=== PATIENT | female | born 1980 | race Caucasian/White ===

== ENCOUNTER 2021-03-12 19:08 | Emergency (ER) | payer OTHER, MEDICAID, SELFPAY ==
[2021-03-12 19:11] VITALS: BP 135/63; PULSE 123; RESP 20; TEMP 38.9; O2SAT 96
[2021-03-12] MEDS: SODIUM CHLORIDE 0.9% 1,000 ML 1000 ML IV ×2 (19:41→20:39)
[2021-03-12] MEDS: ONDANSETRON 4 MG/2 ML INJ IV (19:43)
[2021-03-12 19:59] VITALS: TEMP 38.8
[2021-03-12] MEDS: ACETAMINOPHEN 325 MG TABLET 650 MG PO (19:59)
[2021-03-12 20:25] LABS: Adenovirus Not Detected (Not Detect); Coronavirus 229E Not Detected (Not Detect); Coronavirus HKU1 Not Detected (Not Detect); Coronavirus NL 63 Not Detected (Not Detect); Coronavirus OC43 Not Detected (Not Detect); Human Metapneumovirus Not Detected (Not Detect); SARS- CoV-2 Not Detected (Not Detecte)
[2021-03-12 20:26] LABS: B. parapertussis Not Detected (Not Detecte); Bordetella pertussis Not Detected (Not Detecte); Chlamydophila pneumoniae Not Detected (Not Detect); Human Rhinovirus/Enterovirus Not Detected (Not Detect); Influenza A Not Detected (Not Detect); Influenza B Not Detected (Not Detect); Mycoplasma pneumoniae Not Detected (Not Detect); Parainfluenza Virus 1 Not Detected (Not Detect); Parainfluenza Virus 2 Not Detected (Not Detect); Parainfluenza Virus 3 Not Detected (Not Detect); Parainfluenza Virus 4 Not Detected (Not Detect); Respiratory Syncytial Virus Not Detected (Not Detect)
[2021-03-12 20:37] VITALS: TEMP 39.2
--- NOTE | 2021-03-12 20:59 | ED.GENADULT ---
HPI - General Adult General Chief complaint: Fever Stated complaint: HAVE FLU FEVER 104.4 Time Seen by Provider: 03/12/21 19:41 Source: patient Mode of arrival: Ambulatory History of Present Illness HPI narrative: Patient is a 40-year-old female who for the past week has had fevers and feeling fairly poorly. She thought that she potentially had the flu. Earlier today started to have abdominal discomfort diarrhea. Has been taking Tylenol and ibuprofen for the fevers. Denies chest pain. Denies cough. Denies sore throat. Denies rashes. Has had nausea during this time as well. No recent travel. No recent antibiotics. No recent camping. No sick contacts that she knows of. Related Data Previous Rx's Medication Instructions Recorded ondansetron 4 mg disintegrating 4 mg PO Q6H PRN #14 tab 03/13/21 tablet Allergies Allergy/AdvReac Type Severity Reaction Status Date / Time PCN (PENICILLIN) Allergy Intermediate Uncoded 06/25/17 11:55 SULFA Allergy Intermediate Uncoded 06/25/17 11:55 Review of Systems Review of Systems ROS Unobtainable: All systems reviewed & are unremarkable except as noted in HPI and below Constitutional Constitutional: Reports as per HPI, Reports system reviewed and no additional complaints, except as documented and Reports fever(s) ENT Ears, Nose, Mouth, and Throat: Reports system reviewed and no additional complaints, except as documented and Reports as per HPI Cardiovascular Cardiovascular: Reports system reviewed and no additional complaints, except as documented Respiratory Respiratory: Reports as per HPI and Reports system reviewed and no additional complaints, except as documented Gastrointestinal Gastrointestinal: Reports as per HPI and Reports system reviewed and no additional complaints, except as documented Genitourinary Genitourinary: Reports system reviewed and no additional complaints, except as documented and Reports as per HPI Musculoskeletal Musculoskeletal: Reports system reviewed and no additional complaints, except as documented Integumentary/Breasts Skin/Breast: Reports system reviewed and no additional complaints, except as documented Neurologic Neurologic: Reports system reviewed and no additional complaints, except as documented Hematologic/Lymphatic On Anticoagulants: No Allergic/Immunologic Allergic/Immunologic: Reports system reviewed and no additional complaints, except as documented Patient History Medical History Healthy adult Social History Smoking Status: Current every day smoker Smoking Status: Current every day smoker Exam Initial Vital Signs Initial Vital Signs: Vital Signs Temperature 102.0 F H 03/12/21 19:11 Pulse Rate 123 H 03/12/21 19:11 Respiratory Rate 20 03/12/21 19:11 Blood Pressure 135/63 03/12/21 19:11 Pulse Oximetry 96 03/12/21 19:11 HENMT Head: normal to inspection and normocephalic Resp Effort & Inspection: normal respiratory effort Auscultation: clear to auscultation bilaterally Cardio Rate: tachycardic Rhythm: regular rhythm GI Inspection: normal to inspection Palpation: soft, No firm and tender Back/Spine/Pelvis Back: No CVA tenderness Skin General: no rashes or lesions noted Neuro General: patient alert, patient awake, patient oriented x3 and moves all extremities Extrem General: normal to inspection and capillary refill normal Psych Appearance: grossly normal and well kempt Course Orders Ordered: ED Orders 03/12/21 19:26 Complete Blood Count AUTO DIFF Stat Comprehensive Metabolic Panel Stat Lipase Stat Respiratory Panel (Film Array) Stat 03/12/21 21:00 CT abdomen pelvis w con Stat 03/12/21 21:33 Urine Microscopic Stat 03/12/21 22:45 US abdomen limited Stat 03/12/21 23:41 GI Panel (Film Array) Stat Discontinued Medications Acetaminophen (Acetaminophen 325 Mg Tablet) 650 mg PO NOW ONE Stop: 03/12/21 19:42 Last Admin: 03/12/21 19:59 Dose: 650 mg Documented by: RAGINI Sodium Chloride (Normal Saline 0.9%) 1,000 mls @ 1,000 mls/hr IV BOLUS ONE Stop: 03/12/21 20:22 Last Infusion: 03/12/21 20:37 Dose: 0 mls/hr Documented by: Admin: 03/12/21 19:41 Dose: 1,000 mls/hr Documented by: MICHELLE Sodium Chloride (Normal Saline 0.9%) 1,000 mls @ 1,000 mls/hr IV BOLUS ONE Stop: 03/12/21 21:36 Last Infusion: 03/12/21 21:41 Dose: 0 mls/hr Documented by: Admin: 03/12/21 20:39 Dose: 1,000 mls/hr Documented by: CSIEDLE Ketorolac Tromethamine (Ketorolac 30 Mg/Ml Vial) 30 mg IV NOW ONE Stop: 03/12/21 21:01 Last Admin: 03/12/21 21:12 Dose: 30 mg Documented by: BRUNO Ondansetron HCl (Ondansetron 4 Mg/2 Ml Inj) 4 mg IV NOW ONE Stop: 03/12/21 19:43 Last Admin: 03/12/21 19:43 Dose: 4 mg Documented by: MICHELLE Ondansetron HCl (Ondansetron 4 Mg Odt Prepack) 1 bottle MISC SEEINSTR ONE Stop: 03/13/21 01:21 Last Admin: 03/13/21 01:25 Dose: 1 bottle Documented by: MICHELLE Vital Signs Vital signs: Vital Signs - 8 hr 03/12/21 19:59 03/12/21 20:37 03/12/21 21:30 Temperature 102 F H 102.5 F H 98.9 F Pulse Rate Respiratory Rate Blood Pressure Pulse Oximetry 03/12/21 21:57 03/13/21 01:22 Temperature 98.9 F 96.5 F L Pulse Rate 84 Respiratory Rate 16 Blood Pressure 119/60 Pulse Oximetry 97 Medical Decision Making Lab Data Lab results reviewed: Yes I reviewed the patient's lab results. Result diagrams: 03/12/21 19:26 03/12/21 19:26 Labs: Lab Results 03/12/21 03/12/21 03/12/21 Range/Units 19:26 19:26 19:26 WBC 4.7 (4.5-11.0) X10^3/uL RBC 4.06 (4.0-5.2) X10^6/uL Hgb 11.9 L (12.0-16.0) g/dL Hct 34.2 L (36-46) % MCV 84.2 (80-100) fL MCH 29.2 (26-34) PG MCHC 34.7 (30-36) % RDW 13.2 (11.6-14.8) % Plt Count 47 L (150-400) X10^3/uL Neut % (Auto) 67.8 (50-75) % Lymph % (Auto) 23.6 L (25-40) % [place] % (Auto) 8.2 (3-14) % Eos % (Auto) 0.0 L (2-4) % Baso % (Auto) 0.4 (0-2) % Neut # (Auto) 3200 (1562-2746) /uL Lymph # (Auto) 1100 (1773-6238) /uL [place] # (Auto) 400 (0-900) /uL Eos # (Auto) 0 (0-450) /uL Baso # (Auto) 0 (0-100) /uL Sodium 131 L (137-145) mmol/L Potassium 3.6 (3.4-5.1) mmol/L Chloride 101 (98-107) mmol/L Carbon Dioxide 23 (22-32) mmol/L BUN 9 (7-17) mg/dL Creatinine 0.67 (0.52-1.04) mg/dL Estimated GFR > 60.0 (>60) mL/min BUN/Creatinine Ratio 13.4 (6-22) Glucose 135 H (70-100) mg/dL Calcium 8.5 (8.4-10.2) mg/dL Total Bilirubin 0.8 (0.2-1.3) mg/dL AST 89 H (14-36) IU/L ALT 49 H (<35) IU/L Alkaline Phosphatase 351 H (38-126) U/L Total Protein 7.6 (6.3-8.2) g/dL Albumin 3.5 (3.5-5.0) g/dL Globulin 4.1 (1.7-4.1) g/dL Albumin/Globulin Ratio 0.9 L (1.0-2.8) Lipase 120 (23-300) U/L Urine RBC (0-5/HPF) Urine WBC (0-5/HPF) Ur Squamous Epith Cells (0-5/HPF) Amorphous Sediment Urine Bacteria (None) Urine Mucus (Negative) Ur Culture Indicated? Stl C. cayetanensis PCR (Not Detect) Stool Rotavirus (PCR) (Not Detect) Stool Adenovirus (PCR) (Not Detect) Stool Astrovirus (PCR) (Not Detect) Stool Cryptosporidium PCR (Not Detect) Stl E.coli Shiga Tox PCR (Not Detect) St Sh/Enteroin Ecoli PCR (Not Detect) Stool E coli O157 PCR Stl Enterotoxigenic E PCR (Not Detect) Stool EPEC (PCR) (Not Detect) Stl E. histolytica PCR (Not Detect) Stool Giardia Lamblia PCR (Not Detect) Stool Sapovirus (PCR) (Not Detect) Stl P. shigelloides PCR (Not Detect) St Y.enterocolitica PCR (Not Detect) Stool Vibrio (PCR) (Not Detect) Stl Vibrio cholerae PCR (Not Detect) Stl Enteroaggr Ecoli PCR (Not Detect) Stl Norovirus GI/GII PCR (Not Detect) Chlamy pneumoniae PCR Not detected (Not Detect) Adenovirus (PCR) Not detected (Not Detect) B. pertussis DNA (PCR) Not detected (Not Detecte) B.parapertussis DNA PCR Not detected (Not Detecte) Campylobacter (PCR) (Not Detect) C. difficile Tox (PCR) (Not Detect) Coronavirus OC43 (PCR) Not detected (Not Detect) Coronavirus HKU1 (PCR) Not detected (Not Detect) Coronavirus 229E (PCR) Not detected (Not Detect) SARS-CoV-2 (PCR) Not detected (Not Detecte) Coronavirus NL63 (PCR) Not detected (Not Detect) Human Metapneumovir PCR Not detected (Not Detect) Influenza Type A (PCR) Not detected (Not Detect) Influenza Type B (PCR) Not detected (Not Detect) M. pneumoniae (PCR) Not detected (Not Detect) Parainfluenza 1 (PCR) Not detected (Not Detect) Parainfluenza 2 (PCR) Not detected (Not Detect) Parainfluenza 3 (PCR) Not detected (Not Detect) Parainfluenza 4 (PCR) Not detected (Not Detect) RSV (PCR) Not detected (Not Detect) Entero/Rhino (PCR) Not detected (Not Detect) Salmonella (PCR) (Not Detect) 03/12/21 03/12/21 Range/Units 21:33 23:41 WBC (4.5-11.0) X10^3/uL RBC (4.0-5.2) X10^6/uL Hgb (12.0-16.0) g/dL Hct (36-46) % MCV (80-100) fL MCH (26-34) PG MCHC (30-36) % RDW (11.6-14.8) % Plt Count (150-400) X10^3/uL Neut % (Auto) (50-75) % Lymph % (Auto) (25-40) % [place] % (Auto) (3-14) % Eos % (Auto) (2-4) % Baso % (Auto) (0-2) % Neut # (Auto) (1358-7763) /uL Lymph # (Auto) (8511-5174) /uL [place] # (Auto) (0-900) /uL Eos # (Auto) (0-450) /uL Baso # (Auto) (0-100) /uL Sodium (137-145) mmol/L Potassium (3.4-5.1) mmol/L Chloride (98-107) mmol/L Carbon Dioxide (22-32) mmol/L BUN (7-17) mg/dL Creatinine (0.52-1.04) mg/dL Estimated GFR (>60) mL/min BUN/Creatinine Ratio (6-22) Glucose (70-100) mg/dL Calcium (8.4-10.2) mg/dL Total Bilirubin (0.2-1.3) mg/dL AST (14-36) IU/L ALT (<35) IU/L Alkaline Phosphatase (38-126) U/L Total Protein (6.3-8.2) g/dL Albumin (3.5-5.0) g/dL Globulin (1.7-4.1) g/dL Albumin/Globulin Ratio (1.0-2.8) Lipase (23-300) U/L Urine RBC 1-5/hpf (0-5/HPF) Urine WBC 0-1/hpf (0-5/HPF) Ur Squamous Epith Cells 1-5 /hpf (0-5/HPF) Amorphous Sediment 1+ Urine Bacteria Moderate (10-30) H (None) Urine Mucus 2+ H (Negative) Ur Culture Indicated? Cult not indicated Stl C. cayetanensis PCR Not detected (Not Detect) Stool Rotavirus (PCR) Not detected (Not Detect) Stool Adenovirus (PCR) Not detected (Not Detect) Stool Astrovirus (PCR) Not detected (Not Detect) Stool Cryptosporidium PCR Not detected (Not Detect) Stl E.coli Shiga Tox PCR Not detected (Not Detect) St Sh/Enteroin Ecoli PCR Not detected (Not Detect) Stool E coli O157 PCR Not Reportable Stl Enterotoxigenic E PCR Not detected (Not Detect) Stool EPEC (PCR) Not detected (Not Detect) Stl E. histolytica PCR Not detected (Not Detect) Stool Giardia Lamblia PCR Not detected (Not Detect) Stool Sapovirus (PCR) Not detected (Not Detect) Stl P. shigelloides PCR Not detected (Not Detect) St Y.enterocolitica PCR Not detected (Not Detect) Stool Vibrio (PCR) Not detected (Not Detect) Stl Vibrio cholerae PCR Not detected (Not Detect) Stl Enteroaggr Ecoli PCR Not detected (Not Detect) Stl Norovirus GI/GII PCR Not detected (Not Detect) Chlamy pneumoniae PCR (Not Detect) Adenovirus (PCR) (Not Detect) B. pertussis DNA (PCR) (Not Detecte) B.parapertussis DNA PCR (Not Detecte) Campylobacter (PCR) Not detected (Not Detect) C. difficile Tox (PCR) Not detected (Not Detect) Coronavirus OC43 (PCR) (Not Detect) Coronavirus HKU1 (PCR) (Not Detect) Coronavirus 229E (PCR) (Not Detect) SARS-CoV-2 (PCR) (Not Detecte) Coronavirus NL63 (PCR) (Not Detect) Human Metapneumovir PCR (Not Detect) Influenza Type A (PCR) (Not Detect) Influenza Type B (PCR) (Not Detect) M. pneumoniae (PCR) (Not Detect) Parainfluenza 1 (PCR) (Not Detect) Parainfluenza 2 (PCR) (Not Detect) Parainfluenza 3 (PCR) (Not Detect) Parainfluenza 4 (PCR) (Not Detect) RSV (PCR) (Not Detect) Entero/Rhino (PCR) (Not Detect) Salmonella (PCR) Not detected (Not Detect) Point of Care Testing Test Results Negative Stool Occult Blood Positive Urine Dip Bedside Urine Glucose Negative Bedside Urine Bilirubin - Negative Bedside Urine Ketone - Negative Urine Specific [place] 1.015 Bedside Urine Occult Blood +++ Bedside Urine pH 6.0 Bedside Urine Protein ++ 100 Bedside Urine Urobilinogen - Negative Bedside Urine Nitrite - Negative Bedside Urine Leukocytes - Negative Esterase Point of care testing: Point of Care Testing Test Results Negative Stool Occult Blood Positive Urine Dip Bedside Urine Glucose Negative Bedside Urine Bilirubin - Negative Bedside Urine Ketone - Negative Urine Specific [place] 1.015 Bedside Urine Occult Blood +++ Bedside Urine pH 6.0 Bedside Urine Protein ++ 100 Bedside Urine Urobilinogen - Negative Bedside Urine Nitrite - Negative Bedside Urine Leukocytes - Negative Esterase Imaging Data CT scan - abdomen/pelvis: Radiologist's Impression: [address] [address] [address] Scan Report Signed Patient: Erica Dos Santos MR#: [id number] : 1980 Acct:[id number] Age/Sex: 40 / F Date of Service: 03/12/21 Loc: ED Accession Number: [id number] ?? Procedure: CT abdomen pelvis w con Ordering Provider: Caleb Echavarria D.O. PROCEDURE:? CT ABDOMEN PELVIS W CON ? INDICATIONS:? Bilateral lower abdominal pain ? TECHNIQUE:? After the administration of IV contrast, axial sections were acquired from the lung bases to the pubic symphysis.? Coronal and sagittal reformats were performed.? For radiation dose reduction, the following was used:? automated exposure control, adjustment of mA and/or kV according to patient size. ? COMPARISON:? None. ? FINDINGS:? Image quality:? Excellent.? ? Lung bases:? There is mild dependent atelectasis.? ? Heart:? Heart is normal in size. ? ? ABDOMEN: Liver:? There is nonspecific periportal edema.? No focal hepatic mass. Gallbladder:? The gallbladder is nondistended, with nonspecific gallbladder wall thickening.? Biliary ducts:? No biliary ductal dilatation.? ? Pancreas:? Unremarkable.? ? Spleen:? Normal in size.? ? Adrenal Glands:? No adrenal nodules.? ? Kidneys and Ureters:? No hydronephrosis.? ? ? Stomach and Bowel:? There is wall thickening of the gastric antrum and proximal 1st and 2nd portions of the duodenum.? Mild wall thickening is also demonstrated within the remainder of the duodenum and proximal jejunum.? Remainder of the small bowel demonstrates normal wall thickness and caliber.? No evidence of appendicitis.? The colon demonstrates normal wall thickness and caliber.? There are air-fluid levels throughout the colon suggestive of a gastroenteritis.? No definite bowel obstruction. Peritoneum:? No abnormal intraperitoneal fluid.? No free air.? ? Ventral Wall: ? No hernia.? Abdominal Nodes:? No retroperitoneal or mesenteric adenopathy by size criteria.? There are multiple mildly prominent subcentimeter mesenteric and retroperitoneal lymph nodes which are likely reactive. Vessels:? Aorta and inferior vena cava are normal in size.? ? PELVIS: Pelvic Organs:? Unremarkable.? ? Bladder:? Unremarkable.? ? Pelvic Nodes: No enlarged lymph nodes.? Miscellaneous: No inguinal hernias are seen. ? ? ? Bones:? Visualized osseous structures demonstrate no suspicious focal lesions. ? ? IMPRESSION:? ? 1. Prominent wall thickening involving the gastric antrum and proximal duodenum and to a milder extent within the proximal segment of small bowel.? The findings are consistent with a nonspecific gastroenteritis. ? 2. Scattered air-fluid levels also demonstrated throughout the colon consistent with a gastroenteritis.? No definite bowel obstruction. ? 3. Nonspecific gallbladder wall thickening without distention or calcified gallstones.? Recommend correlation clinically for possible cholecystitis and if indicated further evaluation may be obtained with ultrasound or a HIDA scan ? 4. Nonspecific periportal edema in the liver likely reflecting reactive changes.? ? Dictated by: Everton Aguilar M.D. on 03/12/2021 at 22:27 ? ? Approved by: Everton Aguilar M.D. on 03/12/2021 at 22:34?? US - abdomen: Radiologist's Impression: [place] [address] Ultrasound Report Signed Patient: Erica Dos Santos MR#: [id number] : 1980 Acct:[id number] Age/Sex: 40 / F Date of Service: 03/12/21 Loc: ED Accession Number: [id number] ?? Procedure: US abdomen limited Ordering Provider: Caleb Echavarria D.O. PROCEDURE: US ABDOMEN LIMITED ? INDICATIONS:? RUQ PAIN ? TECHNIQUE:? Real-time focused scanning was performed of the right upper quadrant, with image documentation.? ? COMPARISON:? [facility], CT, CT ABDOMEN PELVIS W CON, 03/12/2021, 21:21. ? FINDINGS:? ? Liver demonstrates a diffuse nonspecific increased periportal echogenicity. ? Gallbladder demonstrates no stones, wall thickening, or pericholecystic fluid.? Patient was reportedly tender on examination. ? No intra or extrahepatic biliary ductal dilatation. ? The visualized pancreas appears unremarkable sonographically. ? IMPRESSION:? ? 1. No evidence of cholelithiasis or definite cholecystitis. ? 2. Increased periportal echogenicity likely corresponding to nonspecific periportal edema seen on CT.? ? ? Dictated by: Everton Aguilar M.D. on 03/12/2021 at 23:53 ? ? Approved by: Everton Aguilar M.D. on 03/12/2021 at 23:55?? [facility] Narrative Medical decision making narrative: Patient arrived tachycardic and febrile. Does not have a leukocytosis. Urine is unremarkable. Initial respiratory panel does not show any signs of COVID-19 or the flu. She is a clear lung exam. Low suspicion for pneumonia. No rash that would be consistent with cellulitis nor give a source of her potential infection. Low suspicion for meningitis. She started to have abdominal tenderness and diarrhea over the past [address] scan of the abdomen does show findings consistent with gastroenteritis. She a does have blood in her stool. No recent travel. Stool study show no definitive infection. She does have elevation in her LFT. Given the CT scan findings are right upper quadrant ultrasound was obtained it does not show any signs of gallbladder pathology. Unsure the exact etiology the patient's symptoms from most likely it is GI in origin given her presentation today. No indication for antibiotics currently. We did discuss the use of anti diarrheal medicines if she needs this over the next couple days. I did discuss the importance of staying hydrated. Patient was given return precautions follow-up instructions. She expressed understanding and agreement. Discharge Plan Departure Patient Disposition: Home Clinical Impression: Fever, Enteritis, Diarrhea, Dehydration Instructions: Diarrhea, DI for Fever (Symptom) -- Adult Activity Restrictions/Additional Instructions: It is important that you increase your fluid intake over the next couple days. You can continue to take Tylenol/ibuprofen for any fevers. If you are having difficulty maintaining your hydration because of the diarrhea you can consider taking anti diarrheal medicine such as Imodium/loperamide. You can purchase this [id number]. Contact your primary doctor for a follow-up. Return to the emergency department for any new or worsening symptoms. Prescriptions: New ondansetron 4 mg tablet,disintegrating 4 mg PO Q6H PRN (Reason: nausea and vomiting) Qty: 14 0RF
--- NOTE | 2021-03-12 21:00 | DI.CT.S_ITS ---
PROCEDURE: CT ABDOMEN PELVIS W CON INDICATIONS: Bilateral lower abdominal pain TECHNIQUE: After the administration of IV contrast, axial sections were acquired from the lung bases to the pubic symphysis. Coronal and sagittal reformats were performed. For radiation dose reduction, the following was used: automated exposure control, adjustment of mA and/or kV according to patient size. COMPARISON: None. FINDINGS: Image quality: Excellent. Lung bases: There is mild dependent atelectasis. Heart: Heart is normal in size. ABDOMEN: Liver: There is nonspecific periportal edema. No focal hepatic mass. Gallbladder: The gallbladder is nondistended, with nonspecific gallbladder wall thickening. Biliary ducts: No biliary ductal dilatation. Pancreas: Unremarkable. Spleen: Normal in size. Adrenal Glands: No adrenal nodules. Kidneys and Ureters: No hydronephrosis. Stomach and Bowel: There is wall thickening of the gastric antrum and proximal 1st and 2nd portions of the duodenum. Mild wall thickening is also demonstrated within the remainder of the duodenum and proximal jejunum. Remainder of the small bowel demonstrates normal wall thickness and caliber. No evidence of appendicitis. The colon demonstrates normal wall thickness and caliber. There are air-fluid levels throughout the colon suggestive of a gastroenteritis. No definite bowel obstruction. Peritoneum: No abnormal intraperitoneal fluid. No free air. Ventral Wall: No hernia. Abdominal Nodes: No retroperitoneal or mesenteric adenopathy by size criteria. There are multiple mildly prominent subcentimeter mesenteric and retroperitoneal lymph nodes which are likely reactive. Vessels: Aorta and inferior vena cava are normal in size. PELVIS: Pelvic Organs: Unremarkable. Bladder: Unremarkable. Pelvic Nodes: No enlarged lymph nodes. Miscellaneous: No inguinal hernias are seen. Bones: Visualized osseous structures demonstrate no suspicious focal lesions. IMPRESSION: 1. Prominent wall thickening involving the gastric antrum and proximal duodenum and to a milder extent within the proximal segment of small bowel. The findings are consistent with a nonspecific gastroenteritis. 2. Scattered air-fluid levels also demonstrated throughout the colon consistent with a gastroenteritis. No definite bowel obstruction. 3. Nonspecific gallbladder wall thickening without distention or calcified gallstones. Recommend correlation clinically for possible cholecystitis and if indicated further evaluation may be obtained with ultrasound or a HIDA scan 4. Nonspecific periportal edema in the liver likely reflecting reactive changes. Dictated by: Everton Aguilar M.D. on 03/12/2021 at 22:27 Approved by: Everton Aguilar M.D. on 03/12/2021 at 22:34
[2021-03-12 21:10] LABS: Alanine Aminotransferase 49 IU/L (<35); Albumin 3.5 g/dL (3.5-5.0); Albumin Globulin Ratio 0.9 (1.0-2.8); Alkaline Phosphatase 351 U/L (38-126); Aspartate Aminotransferase 89 IU/L (14-36); BUN Creatinine Ratio 13.4 (6-22); Bilirubin Total 0.8 mg/dL (0.2-1.3); Blood Urea Nitrogen 9 mg/dL (7-17); Calcium 8.5 mg/dL (8.4-10.2); Carbon Dioxide 23 mmol/L (22-32); Chloride 101 mmol/L (98-107); Estimated Glomerular Filt Rate > 60.0 mL/min (>60); Globulin 4.1 g/dL (1.7-4.1); Glucose 135 mg/dL (70-100); HEMOLYSIS < 15 (0-50); Lipase 120 U/L (23-300); Potassium 3.6 mmol/L (3.4-5.1); Sodium 131 mmol/L (137-145); Total Protein 7.6 g/dL (6.3-8.2)
[2021-03-12 21:11] LABS: Add Manual Diff / Slide Review NO; Basophils Absolute Auto 0 /uL (0-100); Basophils Percent Auto 0.4 % (0-2); Eosinophils Absolute Auto 0 /uL (0-450); Hematocrit 34.2 % (36-46); Hemoglobin 11.9 g/dL (12.0-16.0); Lymphocytes Absolute Auto 1100 /uL (1100-4500); Lymphocytes Percent Auto 23.6 % (25-40); Mean Corpuscular HGB Conc 34.7 % (30-36); Mean Corpuscular Hemoglobin 29.2 PG (26-34); Mean Corpuscular Volume 84.2 fL (80-100); Monocytes Absolute Auto 400 /uL (0-900); Monocytes Percent Auto 8.2 % (3-14); Neutrophils Absolute Auto 3200 /uL (1500-7000); Neutrophils Percent Auto 67.8 % (50-75); Platelet Count 47 X10^3/uL (150-400); Red Blood Cell Count 4.06 X10^6/uL (4.0-5.2); Red Cell Distribution Width 13.2 % (11.6-14.8); White Blood Cell Count 4.7 X10^3/uL (4.5-11.0)
[2021-03-12] MEDS: KETOROLAC 30 MG/ML VIAL IV (21:12)
[2021-03-12 21:30] VITALS: TEMP 37.2
[2021-03-12 21:51] LABS: RBC Urine 1-5/HPF (0-5/HPF)
[2021-03-12 21:52] LABS: Amorphous Sediment Urine 1+; Bacteria Urine Moderate (10-30); Culture Indicated Urine Cult Not Indicated; Mucus Urine 2+ (Negative); Squamous Epithelial Cell Urine 1-5 /HPF (0-5/HPF); WBC Urine 0-1/HPF (0-5/HPF)
[2021-03-12 21:57] VITALS: TEMP 37.2
--- NOTE | 2021-03-12 22:45 | DI.US.S_ITS ---
PROCEDURE: US ABDOMEN LIMITED INDICATIONS: RUQ PAIN TECHNIQUE: Real-time focused scanning was performed of the right upper quadrant, with image documentation. COMPARISON: [facility], CT, CT ABDOMEN PELVIS W CON, 03/12/2021, 21:21. FINDINGS: Liver demonstrates a diffuse nonspecific increased periportal echogenicity. Gallbladder demonstrates no stones, wall thickening, or pericholecystic fluid. Patient was reportedly tender on examination. No intra or extrahepatic biliary ductal dilatation. The visualized pancreas appears unremarkable sonographically. IMPRESSION: 1. No evidence of cholelithiasis or definite cholecystitis. 2. Increased periportal echogenicity likely corresponding to nonspecific periportal edema seen on CT. Dictated by: Everton Aguilar M.D. on 03/12/2021 at 23:53 Approved by: Everton Aguilar M.D. on 03/12/2021 at 23:55
[2021-03-13 01:08] LABS: Adenovirus F 40/41 Not Detected (Not Detect); Astrovirus Not Detected (Not Detect); Campylobacter Not Detected (Not Detect); Clostridium difficile toxin AB Not Detected (Not Detect); Cryptosporidium Not Detected (Not Detect); Cyclospora cayetanensis Not Detected (Not Detect); Entamoeba histolytica Not Detected (Not Detect); Enteroaggregative E.coli Not Detected (Not Detect); Enteropathogenic E.coli Not Detected (Not Detect); Enterotoxigenic E.coli It/st Not Detected (Not Detect); Giardia lamblia Not Detected (Not Detect); Norovirus GI/GII Not Detected (Not Detect); Plesiomonsa shigelloides Not Detected (Not Detect); Rotavirus A Not Detected (Not Detect); Salmonella Not Detected (Not Detect); Sapovirus Not Detected (Not Detect); Shiga-like toxin-prod E.coli Not Detected (Not Detect); Shigella/Enteroinvasive E.coli Not Detected (Not Detect); Vibrio Not Detected (Not Detect); Vibrio cholerae Not Detected (Not Detect); Yersinia enterocolitica Not Detected (Not Detect)
[2021-03-13 01:22] VITALS: BP 119/60; PULSE 84; RESP 16; TEMP 35.8; O2SAT 97
[2021-03-13] MEDS: ONDANSETRON 4 MG ODT PREPACK 1 BOTTLE MISC (01:25)
== END 2021-03-13 01:31 | disposition home or self-care (01) ==
PROVIDERS: Emergency Provider Emergency Medicine
DX: K52.9 Noninfective gastroenteritis and colitis, unspecified (principal); E86.0 Dehydration; R00.0 Tachycardia, unspecified
CPT/HCPCS: 36415; 74177; 76705; 80053; 81003; 81015; 81025; 82272; 83690; 85025; 87507; 87633; 96361; 96374; 96375; 99284; 99285; J1885; J2405; Q9967

== ENCOUNTER 2021-03-20 12:26 | Inpatient (IN) | payer OTHER, MEDICAID, SELFPAY ==
[2021-03-20] VITALS (13 sets, daily range): BP systolic 109–129; BP diastolic 67–80; PULSE 99–106; RESP 12–22; TEMP 36.8–39.5; O2SAT 97–100; BMI 19.5
--- NOTE | 2021-03-20 12:54 | DI.RAD.S_ITS ---
PROCEDURE: XR CHEST 1V INDICATIONS: suspected sepsis TECHNIQUE: One view of the chest was acquired. COMPARISON: None. FINDINGS: Surgical changes and devices: None. Lungs and pleura: Lungs are clear. No pleural effusions or pneumothorax. Mediastinum: Mediastinal contours appear normal. Heart size is normal. Bones and chest wall: No suspicious bony lesions. Overlying soft tissues appear unremarkable. IMPRESSION: No acute cardiopulmonary pathology. Dictated by: Bunny Gimenez M.D. on 03/20/2021 at 13:41 Approved by: Bunny Gimenez M.D. on 03/20/2021 at 13:43
[2021-03-20 13:44] LABS: COVID19 - ADMIT (NP swab/PCR) Negative (Negative)
[2021-03-20] MEDS: SODIUM CHLORIDE 0.9% 1,000 ML 1000 ML IV (13:52)
[2021-03-20 13:53] LABS: Add Manual Diff / Slide Review NO; Basophils Absolute Auto 0 /uL (0-100); Basophils Percent Auto 0.3 % (0-2); Eosinophils Absolute Auto 300 /uL (0-450); Eosinophils Percent Auto 2.3 % (2-4); Lymphocytes Absolute Auto 1900 /uL (1100-4500); Mean Corpuscular HGB Conc 33.1 % (30-36); Mean Corpuscular Volume 87.5 fL (80-100); Monocytes Absolute Auto 1400 /uL (0-900); Monocytes Percent Auto 11.7 % (3-14); Neutrophils Absolute Auto 8400 /uL (1500-7000); Neutrophils Percent Auto 69.7 % (50-75); Platelet Count 234 X10^3/uL (150-400); Red Blood Cell Count 1.57 X10^6/uL (4.0-5.2); Red Cell Distribution Width 15.2 % (11.6-14.8)
[2021-03-20 13:59] LABS: Hematocrit 13.7 % (36-46); Hemoglobin 4.5 g/dL (12.0-16.0)
[2021-03-20 14:14] LABS: INR 1.1 (0.9-1.3); Prothrombin Time 12.8 SECONDS (10.1-12.7)
[2021-03-20 14:17] LABS: PTT Partial Thromboplastin Tim 33 SECONDS (26.4-36.2)
--- NOTE | 2021-03-20 14:20 | ED_ITS ---
HPI - General Adult General Chief complaint: Weakness Stated complaint: MIGRAINE Time Seen by Provider: 03/20/21 14:03 Source: patient Mode of arrival: Ambulatory History of Present Illness HPI narrative: 40-year-old woman with no significant medical issues who was seen here on the complaining of fevers and feeling poorly she noted she had a black stool at that time. She was concerned she had the flu. CT scan at that time showed prominent wall thickening involving the gastric antrum and proximal duodenum to a milder extent within the proximal segment of small bowel. It was felt that she had colitis and she was discharged home with nausea medication and instructions to use ibuprofen and Tylenol as tolerated. She has been trying to tolerate both but is having significant of vomiting. Of note she has not had any black or bloody emesis and has not had any recurrent black stools. She states she still is having fevers she complains of worsening dull headache that she describes as migraine like. No cough, palpitations. Global weakness. Related Data Previous Rx's Medication Instructions Recorded ondansetron 4 mg disintegrating 4 mg PO Q6H PRN #14 tab 03/13/21 tablet Allergies Allergy/AdvReac Type Severity Reaction Status Date / Time Penicillins Allergy Unknown Verified 03/20/21 12:53 Sulfa (Sulfonamide Allergy Unknown Verified 03/20/21 12:53 Antibiotics) Review of Systems Review of Systems Narrative: Remainder of complete review of systems is otherwise unremarkable except for that included in the HPI. Patient History Medical History Healthy adult Social History Smoking Status: Current every day smoker Smoking Status: Current every day smoker alcohol intake frequency: 0-2 drinks per day Substance Use Type: marijuana Exam Initial Vital Signs Initial Vital Signs: Vital Signs Temperature 98.2 F 03/20/21 12:47 Pulse Rate 106 H 03/20/21 12:47 Respiratory Rate 22 03/20/21 12:47 Pulse Oximetry 100 03/20/21 12:47 General: Pale and acutely ill-appearing but Able to give a complete and coherent history. HEENT: Drymucous membranes, normal sclera with reactive pupils, Neck: No JVD, supple Respiratory: Lungs are clear to auscultation, no wheezing no rales no rhonchi. Full and symmetrical air movement Cardiac: Mild tachycardia but Regular rate and rhythm no murmurs no bruits Abdomen: Soft, mild diffuse tenderness without rebound or guarding, hyperactive bowel tones, no flank pain Skin: Pale but otherwise Warm and dry, no rashes Neurologic: Complaining of a headache but otherwise Grossly neurologically intact with no obvious asymmetries or abnormalities Extremities: No trauma, Psych: Cooperative, appropriate insight and affect Course Orders Ordered: ED Orders 03/20/21 12:54 XR chest 1V Stat Blood Culture Stat 03/20/21 12:55 COVID19 - ADMIT ([facility] NURSE swab/PCR) Stat 03/20/21 13:40 Complete Blood Count AUTO DIFF Stat Comprehensive Metabolic Panel Stat Lactate (Lactic Acid) Stat Lipase Stat Packed Cells Stat Partial Thromboplastin Time Stat Procalcitonin Stat Prothrombin Time INR Stat Type and Screen Stat Hydromorphone HCl (Hydromorphone 0.5 Mg Inj) 0.5 mg IV Q15MIN PRN PRN Reason: Pain, Discontinued Medications Sodium Chloride (Normal Saline 0.9%) 1,000 mls @ 1,000 mls/hr IV BOLUS ONE Stop: 03/20/21 13:53 Last Infusion: 03/20/21 14:02 Dose: 100 mls/hr Documented by: Admin: 03/20/21 13:52 Dose: 1,000 mls/hr Documented by: FERCHO Metoclopramide HCl (Metoclopramide 10 Mg/2 Ml Inj) 10 mg IV NOW ONE Stop: 03/20/21 14:33 Last Admin: 03/20/21 14:57 Dose: 10 mg Documented by: BRUNO Vital Signs Vital signs: Vital Signs - 8 hr 03/20/21 12:47 Temperature 98.2 F Pulse Rate 106 H Respiratory Rate 22 Pulse Oximetry 100 Medical Decision Making Lab Data Result diagrams: 03/20/21 13:40 03/20/21 13:40 Labs: Lab Results 03/20/21 03/20/21 03/20/21 Range/Units 12:55 13:40 13:40 WBC 12.0 H (4.5-11.0) X10^3/uL RBC 1.57 L (4.0-5.2) X10^6/uL Hgb 4.5 L* (12.0-16.0) g/dL Hct 13.7 L* (36-46) % MCV 87.5 D (80-100) fL MCH 29.0 (26-34) PG MCHC 33.1 (30-36) % RDW 15.2 H (11.6-14.8) % Plt Count 234 (150-400) X10^3/uL Neut % (Auto) 69.7 (50-75) % Lymph % (Auto) 16.0 L (25-40) % [place] % (Auto) 11.7 (3-14) % Eos % (Auto) 2.3 (2-4) % Baso % (Auto) 0.3 (0-2) % Neut # (Auto) 8400 H (2409-9963) /uL Lymph # (Auto) 1900 (3030-4864) /uL [place] # (Auto) 1400 H (0-900) /uL Eos # (Auto) 300 (0-450) /uL Baso # (Auto) 0 (0-100) /uL PT 12.8 H (10.1-12.7) SECONDS INR 1.1 (0.9-1.3) APTT 33 (26.4-36.2) SECONDS Sodium (137-145) mmol/L Potassium (3.4-5.1) mmol/L Chloride (98-107) mmol/L Carbon Dioxide (22-32) mmol/L BUN (7-17) mg/dL Creatinine (0.52-1.04) mg/dL Estimated GFR (>60) mL/min BUN/Creatinine Ratio (6-22) Glucose (70-100) mg/dL Calcium (8.4-10.2) mg/dL Total Bilirubin (0.2-1.3) mg/dL AST (14-36) IU/L ALT (<35) IU/L Alkaline Phosphatase (38-126) U/L Total Protein (6.3-8.2) g/dL Albumin (3.5-5.0) g/dL Globulin (1.7-4.1) g/dL Albumin/Globulin Ratio (1.0-2.8) Lipase (23-300) U/L Procalcitonin (<0.5) ng/mL SARS-CoV-2 (PCR) Negative (Negative) Blood Type Antibody Screen Crossmatch 03/20/21 03/20/21 Range/Units 13:40 13:40 WBC (4.5-11.0) X10^3/uL RBC (4.0-5.2) X10^6/uL Hgb (12.0-16.0) g/dL Hct (36-46) % MCV (80-100) fL MCH (26-34) PG MCHC (30-36) % RDW (11.6-14.8) % Plt Count (150-400) X10^3/uL Neut % (Auto) (50-75) % Lymph % (Auto) (25-40) % Mccone % (Auto) (3-14) % Eos % (Auto) (2-4) % Baso % (Auto) (0-2) % Neut # (Auto) (7430-1405) /uL Lymph # (Auto) (2973-9660) /uL M[place]one # (Auto) (0-900) /uL Eos # (Auto) (0-450) /uL Baso # (Auto) (0-100) /uL PT (10.1-12.7) SECONDS INR (0.9-1.3) APTT (26.4-36.2) SECONDS Sodium 134 L (137-145) mmol/L Potassium 4.1 (3.4-5.1) mmol/L Chloride 101 (98-107) mmol/L Carbon Dioxide 29 (22-32) mmol/L BUN 10 (7-17) mg/dL Creatinine 0.66 (0.52-1.04) mg/dL Estimated GFR > 60.0 (>60) mL/min BUN/Creatinine Ratio 15.2 (6-22) Glucose 106 H (70-100) mg/dL Calcium 8.3 L (8.4-10.2) mg/dL Total Bilirubin 0.3 (0.2-1.3) mg/dL AST 64 H (14-36) IU/L ALT 53 H (<35) IU/L Alkaline Phosphatase 319 H (38-126) U/L Total Protein 7.0 (6.3-8.2) g/dL Albumin 3.3 L (3.5-5.0) g/dL Globulin 3.7 (1.7-4.1) g/dL Albumin/Globulin Ratio 0.9 L (1.0-2.8) Lipase 104 (23-300) U/L Procalcitonin 0.11 (<0.5) ng/mL SARS-CoV-2 (PCR) (Negative) Blood Type O Positive Antibody Screen Negative Crossmatch See Detail Imaging Data CT scan on 03/12: Radiologist's Impression: FINDINGS:? Image quality:? Excellent.? ? Lung bases:? There is mild dependent atelectasis.? ? Heart:? Heart is normal in size. ? ? ABDOMEN: Liver:? There is nonspecific periportal edema.? No focal hepatic mass. Gallbladder:? The gallbladder is nondistended, with nonspecific gallbladder wall thickening.? Biliary ducts:? No biliary ductal dilatation.? ? Pancreas:? Unremarkable.? ? Spleen:? Normal in size.? ? Adrenal Glands:? No adrenal nodules.? ? Kidneys and Ureters:? No hydronephrosis.? ? ? Stomach and Bowel:? There is wall thickening of the gastric antrum and proximal 1st and 2nd portions of the duodenum.? Mild wall thickening is also demonstrated within the remainder of the duodenum and proximal jejunum.? Remainder of the small bowel demonstrates normal wall thickness and caliber.? No evidence of appendicitis.? The colon demonstrates normal wall thickness and caliber.? There are air-fluid levels throughout the colon suggestive of a gastroenteritis.? No definite bowel obstruction. Peritoneum:? No abnormal intraperitoneal fluid.? No free air.? ? Ventral Wall: ? No hernia.? Abdominal Nodes:? No retroperitoneal or mesenteric adenopathy by size criteria.? There are multiple mildly prominent subcentimeter mesenteric and retroperitoneal lymph nodes which are likely reactive. Vessels:? Aorta and inferior vena cava are normal in size.? ? PELVIS: Pelvic Organs:? Unremarkable.? ? Bladder:? Unremarkable.? ? Pelvic Nodes: No enlarged lymph nodes.? Miscellaneous: No inguinal hernias are seen. ? ? ? Bones:? Visualized osseous structures demonstrate no suspicious focal lesions. ? ? IMPRESSION:? ? 1. Prominent wall thickening involving the gastric antrum and proximal duodenum and to a milder extent within the proximal segment of small bowel.? The findings are consistent with a nonspecific gastroenteritis. ? 2. Scattered air-fluid levels also demonstrated throughout the colon consistent with a gastroenteritis.? No definite bowel obstruction. ? 3. Nonspecific gallbladder wall thickening without distention or calcified gallstones.? Recommend correlation clinically for possible cholecystitis and if indicated further evaluation may be obtained with ultrasound or a HIDA scan ? 4. Nonspecific periportal edema in the liver likely reflecting reactive changes.? ? Dictated by: Everton Aguilar M.D. on 03/12/2021 at 22:27 ? ? MDM Narrative Medical decision making narrative: 40-year-old woman seen on the with complaints of abdominal pain felt to be gastritis with swelling in the antrum of the stomach and proximal duodenum. Vomiting and diarrhea have resolved however she continues to feel worse now dev eloping fevers low-grade headaches general malaise and overall weakness. Labs are notable for now slightly elevated white blood cell count 12. Most notable are for a dramatic decrease in her H&H. On the her hemoglobin was 11.9 and hematocrit was 34.2. Today she is down to 4.5 and 13.7. 233pm care is reviewed with Dr. Richards, general surgery. He agrees with packed red cell transfusion for fluid resuscitation, hospital admission to his service with NPO status in anticipation of upper endoscopy tomorrow. Discharge Plan Departure Patient Disposition: Admitted As Inpatient Clinical Impression: Acute upper GI bleed, Abdominal pain, Headache, Weakness Admit Date/Time: 03/20/21 14:32 Admit Provider: Sukhdev Richards
[2021-03-20 14:22] LABS: Alanine Aminotransferase 53 IU/L (<35); Albumin 3.3 g/dL (3.5-5.0); Albumin Globulin Ratio 0.9 (1.0-2.8); Alkaline Phosphatase 319 U/L (38-126); Aspartate Aminotransferase 64 IU/L (14-36); BUN Creatinine Ratio 15.2 (6-22); Bilirubin Total 0.3 mg/dL (0.2-1.3); Blood Urea Nitrogen 10 mg/dL (7-17); Calcium 8.3 mg/dL (8.4-10.2); Carbon Dioxide 29 mmol/L (22-32); Chloride 101 mmol/L (98-107); Estimated Glomerular Filt Rate > 60.0 mL/min (>60); Globulin 3.7 g/dL (1.7-4.1); Glucose 106 mg/dL (70-100); HEMOLYSIS < 15 (0-50); Lipase 104 U/L (23-300); Potassium 4.1 mmol/L (3.4-5.1); Sodium 134 mmol/L (137-145)
[2021-03-20 14:38] LABS: Procalcitonin 0.11 ng/mL (<0.5)
[2021-03-20] MEDS: METOCLOPRAMIDE 10 MG/2 ML INJ IV (14:57)
[2021-03-20] MEDS: cefTRIAXone 2,000 MG in SODIUM CHLORIDE 0.9% 100 ML 200 ML IV (15:32)
[2021-03-20] MEDS: ACETAMINOPHEN 325 MG TABLET 975 MG PO (15:32)
[2021-03-20 17:00] LABS: Appearance Urine UA CLEAR; Bilirubin Urine UA NEGATIVE (NEGATIVE); Color Urine UA YELLOW; Glucose Urine UA NEGATIVE (Negative); Ketones Urine UA NEGATIVE (NEGATIVE); Leukocyte Esterase Urine UA NEGATIVE (NEGATIVE); Nitrite Urine UA NEGATIVE (Negative); Occult Blood Urine UA NEGATIVE (Negative); Protein Urine UA NEGATIVE (Negative); Specific Gravity Urine UA 1.015 (1.000-1.035); Urobilinogen Urine UA 0.2 E.U./dL (0.2)
[2021-03-20 17:05] LABS: Pregnancy Test Urine Negative (Negative)
[2021-03-20 17:07] LABS: Bacteria Urine None Seen; Culture Indicated Urine Cult Not Indicated; RBC Urine None Seen (0-5/HPF); Squamous Epithelial Cell Urine 0-1 /HPF (0-5/HPF); WBC Urine 0-1/HPF (0-5/HPF)
[2021-03-20] MEDS: SODIUM CHLORIDE 0.9% 1,000 ML 125 ML IV (17:07)
--- NOTE | 2021-03-20 17:45 | P.HP_ITS ---
History of Present Illness History of Present Illness Date Patient Seen: 03/20/21 Time Patient Seen: 17:45 Chief complaint: Anemia Narrative: Erica Dos Santos is a 40-year-old otherwise healthy woman who presented to the ER today with fevers, headache and fatigue. She is noted to be profoundly anemic with a hemoglobin of under 5. She was also seen in the ER last week with similar symptoms and a CT scan was performed which showed some thickening of the antrum and duodenum. She had had melena prior to that episode and she had also been taking relatively high amounts of ibuprofen for about a week due to her flu-like symptoms. He has never had a prior endoscopy procedure. She has not had prior surgery and has no active medical issues. Patient History Medical History Healthy adult Family & Social History Social History: household members significant other Prior Living Arrangements House Safety & Behavioral: Feels Safe in Current Yes Environment Been Physically Hurt or No Threatened By a Person Suicidal Ideation Description None Suicide Plan Description No Plan Tobacco & Substance use: Smoking Status Current every day smoker alcohol intake never alcohol intake frequency 0-2 drinks per day Substance Use Type marijuana Meds Home Medications and Allergies Home Medications Medication Instructions Recorded Confirmed Type ondansetron 4 mg disintegrating 4 mg PO Q6H PRN #14 tab 03/13/21 03/20/21 Rx tablet Allergies Allergy/AdvReac Type Severity Reaction Status Date / Time Penicillins Allergy Unknown Verified 03/20/21 12:53 Sulfa (Sulfonamide Allergy Unknown Verified 03/20/21 12:53 Antibiotics) Exam Vital Signs (past 8 hours): - 03/20/21 12:47 03/20/21 15:21 03/20/21 15:35 Temperature 98.2 F 100.2 F H 100.4 F H Pulse Rate 106 H 101 H 100 H Respiratory Rate 22 12 15 Blood Pressure 126/79 123/77 Pulse Oximetry 100 03/20/21 16:00 03/20/21 16:09 03/20/21 17:11 Temperature 100.3 F H 100.3 F H 100.3 F H Pulse Rate 102 H 101 H 100 H Respiratory Rate 14 14 14 Blood Pressure 120/77 123/70 109/67 Pulse Oximetry 98 100 03/20/21 17:36 Temperature 100.3 F H Pulse Rate 100 H Respiratory Rate 14 Blood Pressure 109/67 Pulse Oximetry Oxygen Delivery Method Room Air Oxygen Flow Rate 0 Const Nutritional Appearance: thin Other: Pale Subdued affect Resp Effort & Inspection: normal respiratory effort GI Other: Abdomen soft nontender No scars Objective Labs Result Diagrams: 03/20/21 13:40 03/20/21 13:40 Labs: Laboratory Results - last 24 hr 03/20/21 03/20/21 03/20/21 12:55 13:40 13:40 WBC 12.0 H RBC 1.57 L Hgb 4.5 L* Hct 13.7 L* MCV 87.5 D MCH 29.0 MCHC 33.1 RDW 15.2 H Plt Count 234 Neut % (Auto) 69.7 Lymph % (Auto) 16.0 L [place] % (Auto) 11.7 Eos % (Auto) 2.3 Baso % (Auto) 0.3 Neut # (Auto) 8400 H Lymph # (Auto) 1900 [place] # (Auto) 1400 H Eos # (Auto) 300 Baso # (Auto) 0 PT 12.8 H INR 1.1 APTT 33 Sodium Potassium Chloride Carbon Dioxide BUN Creatinine Estimated GFR BUN/Creatinine Ratio Glucose Lactate Calcium Total Bilirubin AST ALT Alkaline Phosphatase Total Protein Albumin Globulin Albumin/Globulin Ratio Lipase Procalcitonin Urine Color Urine Appearance Urine pH Ur Specific Whipple Urine Protein Urine Glucose (UA) Urine Ketones Urine Occult Blood Urine Nitrate Urine Bilirubin Urine Urobilinogen Ur Leukocyte Esterase Urine RBC Urine WBC Ur Squamous Epith Cells Urine Bacteria Ur Culture Indicated? Urine Test SARS-CoV-2 (PCR) Negative Blood Type Antibody Screen Crossmatch 03/20/21 03/20/21 03/20/21 13:40 13:40 13:40 WBC RBC Hgb Hct MCV MCH MCHC RDW Plt Count Neut % (Auto) Lymph % (Auto) [place] % (Auto) Eos % (Auto) Baso % (Auto) Neut # (Auto) Lymph # (Auto) [place] # (Auto) Eos # (Auto) Baso # (Auto) PT INR APTT Sodium 134 L Potassium 4.1 Chloride 101 Carbon Dioxide 29 BUN 10 Creatinine 0.66 Estimated GFR > 60.0 BUN/Creatinine Ratio 15.2 Glucose 106 H Lactate 1.0 Calcium 8.3 L Total Bilirubin 0.3 AST 64 H ALT 53 H Alkaline Phosphatase 319 H Total Protein 7.0 Albumin 3.3 L Globulin 3.7 Albumin/Globulin Ratio 0.9 L Lipase 104 Procalcitonin 0.11 Urine Color Urine Appearance Urine pH Ur Specific Whipple Urine Protein Urine Glucose (UA) Urine Ketones Urine Occult Blood Urine Nitrate Urine Bilirubin Urine Urobilinogen Ur Leukocyte Esterase Urine RBC Urine WBC Ur Squamous Epith Cells Urine Bacteria Ur Culture Indicated? Urine Test SARS-CoV-2 (PCR) Blood Type O Positive Antibody Screen Negative Crossmatch See Detail 03/20/21 03/20/21 16:35 16:35 WBC RBC Hgb Hct MCV MCH MCHC RDW Plt Count Neut % (Auto) Lymph % (Auto) [place] % (Auto) Eos % (Auto) Baso % (Auto) Neut # (Auto) Lymph # (Auto) [place] # (Auto) Eos # (Auto) Baso # (Auto) PT INR APTT Sodium Potassium Chloride Carbon Dioxide BUN Creatinine Estimated GFR BUN/Creatinine Ratio Glucose Lactate Calcium Total Bilirubin AST ALT Alkaline Phosphatase Total Protein Albumin Globulin Albumin/Globulin Ratio Lipase Procalcitonin Urine Color Yellow Urine Appearance Clear Urine pH 6.0 Ur Specific Whipple 1.015 Urine Protein Negative Urine Glucose (UA) Negative Urine Ketones Negative Urine Occult Blood Negative Urine Nitrate Negative Urine Bilirubin Negative Urine Urobilinogen 0.2 Ur Leukocyte Esterase Negative Urine RBC None seen Urine WBC 0-1/hpf Ur Squamous Epith Cells 0-1 /hpf Urine Bacteria None seen Ur Culture Indicated? Cult not indicated Urine Test Negative SARS-CoV-2 (PCR) Blood Type Antibody Screen Crossmatch Assessment & Plan Assessment and plan (1) Acute upper GI bleed: Status: Acute Plan Suspect bleeding ulcer as cause for anemia We will resuscitate with blood tonight and perform upper endoscopy tomorrow. Will check a CBC after her 2nd unit of blood finish is Time Spent With Patient Critical Care time: I spent a total of [] minutes of critical care time on this patient's care today; this time is exclusive of procedural time. Quality VTE Deep Vein Thrombosis/Pulmonary Embolism Present on Admission: No
--- NOTE | 2021-03-20 19:41 | PC.NURSE ---
A&Ox4. BP 112/71, HR 99, Temp 100 F, O2 100%, Resp 16. Patient received 1 unit packed RBC, second unit transfusing now. Patient denies any adverse symptoms from transfusion. She states she is starting to feel less dizzy and is warming up. 2 person assist to bedside commode. IV NS going at 125. NPO. Denies pain. Call light within reach, bed low.
[2021-03-20] MEDS: LACTATED RINGERS 1,000 ML 100 ML IV (20:50)
[2021-03-20 21:13] LABS: Add Manual Diff / Slide Review NO; Basophils Absolute Auto 0 /uL (0-100); Basophils Percent Auto 0.3 % (0-2); Eosinophils Absolute Auto 200 /uL (0-450); Eosinophils Percent Auto 1.8 % (2-4); Hematocrit 21.5 % (36-46); Hemoglobin 7.2 g/dL (12.0-16.0); Lymphocytes Absolute Auto 1600 /uL (1100-4500); Lymphocytes Percent Auto 14.9 % (25-40); Mean Corpuscular HGB Conc 33.7 % (30-36); Mean Corpuscular Hemoglobin 29.5 PG (26-34); Mean Corpuscular Volume 87.6 fL (80-100); Monocytes Absolute Auto 1200 /uL (0-900); Monocytes Percent Auto 11.6 % (3-14); Neutrophils Absolute Auto 7600 /uL (1500-7000); Neutrophils Percent Auto 71.4 % (50-75); Platelet Count 198 X10^3/uL (150-400); Red Blood Cell Count 2.45 X10^6/uL (4.0-5.2); Red Cell Distribution Width 16.2 % (11.6-14.8); White Blood Cell Count 10.7 X10^3/uL (4.5-11.0)
[2021-03-20] MEDS: ACETAMINOPHEN 325 MG TABLET 650 MG PO (22:29)
[2021-03-20] MEDS: HYDROMORPHONE 0.5 MG INJ IV (23:23)
[2021-03-21] VITALS (17 sets, daily range): BP systolic 115–133; BP diastolic 71–84; PULSE 75–92; RESP 12–18; TEMP 36.6–38.2; O2SAT 94–99; BMI 19.5
--- NOTE | 2021-03-21 | PATH_ITS ---
[facility] Accession Number: [id number] . 01 Material submitted: . stomach - ANTRUM . 02 Diagnosis: Stomach, Antrum, Biopsy: Antral mucosa with mild chronic gastritis. Negative for Helicobacter by immunohistochemistry. Negative for intestinal metaplasia. Negative for dysplasia and malignancy. . MRV 03/26/2021 1430 Local . 02 Electronically signed: . Penny Lopes MD, Pathologist NPI- [id number] . 01 Gross description: . ANTRUM: Received in formalin are 3 fragment(s) of sauceda, soft tissue measuring 0.2 x 0.2 x 0.2 cm to 0.3 x 0.1 x 0.1 cm submitted entirely in 1 cassette(s) /SUZETTE 03/22/2021 0117 Local . 02 Microscopic: . An immunohistochemical stain was performed to evaluate for Helicobacter organisms and is negative. The control stain showed appropriate reactivity. . * This test was developed and its performance characteristics determined by [facility]. It has not been cleared or approved by the U.S. Food and Drug Administration. The FDA has determined that such clearance or approval is not necessary. This test is used for clinical purposes. It should not be regarded as investigational or for research. . 02 Pathologist provided ICD-10: R10.9 . 02 CPT . 947816, C11065 Performed at: 01 [facility] [address] [place] [address], [place], [place] [id number] MD Everton Hu MD Phone: [phone] Performed at: [address] [place] [id number] [place], [place] [id number] MD Penny Lopes MD Phone: [phone]
[2021-03-21] MEDS: ONDANSETRON 4 MG/2 ML INJ IV ×2 (03:17→10:57)
[2021-03-21] MEDS: LACTATED RINGERS 1,000 ML 100 ML IV ×2 (04:49→17:19)
[2021-03-21] MEDS: HYDROMORPHONE 0.5 MG INJ IV ×6 (04:52→23:29)
[2021-03-21 06:55] LABS: Add Manual Diff / Slide Review NO; Basophils Absolute Auto 0 /uL (0-100); Basophils Percent Auto 0.4 % (0-2); Eosinophils Absolute Auto 0 /uL (0-450); Eosinophils Percent Auto 0.3 % (2-4); Lymphocytes Absolute Auto 1700 /uL (1100-4500); Lymphocytes Percent Auto 15.4 % (25-40); Mean Corpuscular HGB Conc 33.4 % (30-36); Mean Corpuscular Volume 86.8 fL (80-100); Monocytes Absolute Auto 1300 /uL (0-900); Monocytes Percent Auto 11.3 % (3-14); Neutrophils Absolute Auto 8200 /uL (1500-7000); Neutrophils Percent Auto 72.6 % (50-75); Platelet Count 206 X10^3/uL (150-400); Red Blood Cell Count 2.38 X10^6/uL (4.0-5.2); Red Cell Distribution Width 16.8 % (11.6-14.8); White Blood Cell Count 11.3 X10^3/uL (4.5-11.0)
[2021-03-21 06:58] LABS: Hematocrit 20.7 % (36-46); Hemoglobin 6.9 g/dL (12.0-16.0)
[2021-03-21 07:05] LABS: BUN Creatinine Ratio 9.8 (6-22); Blood Urea Nitrogen 5 mg/dL (7-17); Calcium 7.8 mg/dL (8.4-10.2); Carbon Dioxide 27 mmol/L (22-32); Chloride 103 mmol/L (98-107); Estimated Glomerular Filt Rate > 60.0 mL/min (>60); Glucose 109 mg/dL (70-100); HEMOLYSIS < 15 (0-50); Potassium 4.3 mmol/L (3.4-5.1); Sodium 133 mmol/L (137-145)
--- NOTE | 2021-03-21 07:06 | PC.NURSE ---
Lab called at 0658 with critical H/H of 6.9/20.7. Dr. Richards and charge nurse were notified at 0701. Telephone order given by Dr. Richards for 1 unit blood now.
--- NOTE | 2021-03-21 15:20 | CM.DANOTE ---
Patient is a 40 yo female who was admitted on 03/20/21 for Anemia. Pt has [employer] for insurance and her PCP is not listed. EMR was reviewed. Per Surgeon, pt with anemia likely related to bleeding ulcer and requiring blood transfusions with plan of endoscopy today if stable. Per RN, pt had another transfusion this morning but stable now for Endo today around 1600 and pt has had ongoing migraines since and feeling very miserable. 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 Pt is active and independent at baseline and drives and does not use DME for ambulation and is not . Pt denies any hx of HH or SNF and states her sister is flying in from [place] to help assist with their father and also pt if needed. Pt is hopeful to get answers to her medical condition/concerns as she typically is healthy and feels well but has progressively felt worse and worse since . Plan: SW to follow closely after surgical interventions towards determining d/c planning needs and any barriers to discharge. GISELLE Mendiola Discharge Planning/Care Management CM Discharge Assessment Start: 03/21/21 14:40 Freq: Status: Active Protocol: Document 03/21/21 14:41 BF (Rec: 03/21/21 15:20 BF [id number]) Discharge Planning Assessment Assigned Oriental Rug Stretcher GISELLE Randolph Advance Directives? No Advance Directives on File No History Provided By Patient,Medical Record Has Patient been admitted in last 30 No days? Prior Living Arrangements House Household Members significant other Type of transporation used prior to Drives own vehicle admit Independent with ADL's Yes Is patient alert and oriented? Yes Barriers to Discharge No Discharge Plan Home Referrals Initiated None needed Review Status In Process Please Provide Date Initial DC 03/21/21 Assessment Was Performed Next Review Type Continued Stay Review
--- NOTE | 2021-03-21 17:16 | PM.PREOP ---
Pre-operative Note COVID-19 COVID-19 status: Negative Result date/Date tested (Pos, Neg/Pending): 03/20/21 Interval Note History & Physical reviewed/Exam performed by Physician: Yes Changes to H&P: No ASA Class (for procedural sedation): II
--- NOTE | 2021-03-21 17:48 | PM.OP.EGD ---
Operative Date/Time/Diagnoses Date of procedure: 03/21/21 Time of procedure: 17:49 Pre-op diagnosis: Anemia Post-op diagnosis: same Procedure & Clinicians Study performed: Esophagogastroduodenoscopy Same procedure as scheduled: Yes Surgeon: Sukhdev Richards Procedure Notes Procedure in detail: A timeout was performed. A bite blocked was placed. The patient was positioned in the left lateral decubitus position. The endoscope was inserted through the bite block and passed through the esophagus and stomach and into the duodenum. The duodenal mucosa appeared normal. The scope was withdrawn into the duodenal bulb and mild duodenitis was noted. The scope was withdrawn into the stomach. There were multiple ulcerations in the antrum. There was no active bleeding and there were no visible vessels exposed. Random biopsies were taken from the antrum using the standard forceps. The rest of the stomach was normal. The scope was retroflexed and no hiatal hernia was noted. The scope was withdrawn into the esophagus and the mucosa was normal.The remainder of the esophagus was normal. The scope was withdrawn. The patient was awakened and brought to recovery. Findings: gastric ulcer
--- NOTE | 2021-03-21 19:50 | PC.NURSE ---
Pt A&OX3, on RA. Temperatures still ranging from low grade to 101.8 this a.m. Pt complains of ongoing migraines this shift. NPO this a.m. for EGD, and ordered 1 unit of PRBC's. She tolerated the blood well without s/sx of reaction. C/o dizziness with ambulating to the BR and had 400 ml of bile colored emesis. She then uses BSC to reduce dizziness/nausea. Hydromorphone 0.5mg IV PRN given with good effect but didn't last very long. Pt taken for EGD this afternoon and returning to the floor at 1600.Pt expresses concern about migraines and temperatures after EGD this evening and having medication to help her until she can find a PCP. She is able to tolerate about 50% of meal this evening, and denied n/v. She reported headache as mild this evening after EGD. Continuous monitoring.
[2021-03-21] MEDS: ACETAMINOPHEN 325 MG TABLET 650 MG PO (20:35)
[2021-03-22] MEDS: LACTATED RINGERS 1,000 ML 100 ML IV (00:59)
[2021-03-22 03:51] VITALS: BP 140/88; PULSE 82; RESP 18; TEMP 37.3; O2SAT 98
[2021-03-22] MEDS: HYDROMORPHONE 0.5 MG INJ IV ×3 (03:59→08:44)
--- NOTE | 2021-03-22 06:43 | PC.NURSE ---
a/o, voices needs. SBA mobility and transfers. denies dizziness or extreme weakness. main complaint is h/a, in my temples, it's very tense PRN dilauded IVP given x 4 thru the noc, w/ fairly good effects, and they wear off and her pain returns. offered caffeine last night in case she is used to taking caffeine. reportedly brought her h/a 09/23 to 06/24. continues w/ IVF, LR @ 100/hour. labwork to be drawn this AM. 1pa mobility, used commode most of night, able to ambulate to/from bathroom early this morning. steady gait. a few times patient was tearful, discussing her stressors at home. 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 info on the [facility] support group in [place] given to patient. day shift RN will pass on to case management to f/u. sat w/ patient this morning and provided listening support, massaged her shoulders and neck and head, as she states this is where her h/a feels the worst. her muscles are very tight, and she states she used to get a massage frequently, but has been losing touch w/ self-care after caring for her father. encouraged her to reach out to friends and her sister for support. day shift RN will f/u w/ assigned MD. suggest valium, flexeril, or migraine medication to assist w/ h/a pain control.
[2021-03-22 07:07] LABS: Add Manual Diff / Slide Review NO; Basophils Absolute Auto 0 /uL (0-100); Basophils Percent Auto 0.3 % (0-2); Eosinophils Absolute Auto 100 /uL (0-450); Eosinophils Percent Auto 0.9 % (2-4); Hematocrit 26.4 % (36-46); Hemoglobin 9.1 g/dL (12.0-16.0); Lymphocytes Absolute Auto 1400 /uL (1100-4500); Lymphocytes Percent Auto 16.6 % (25-40); Mean Corpuscular HGB Conc 34.3 % (30-36); Mean Corpuscular Hemoglobin 29.9 PG (26-34); Mean Corpuscular Volume 87.3 fL (80-100); Monocytes Absolute Auto 800 /uL (0-900); Monocytes Percent Auto 8.9 % (3-14); Neutrophils Absolute Auto 6200 /uL (1500-7000); Neutrophils Percent Auto 73.3 % (50-75); Platelet Count 208 X10^3/uL (150-400); Red Blood Cell Count 3.03 X10^6/uL (4.0-5.2); Red Cell Distribution Width 15.7 % (11.6-14.8); White Blood Cell Count 8.5 X10^3/uL (4.5-11.0)
[2021-03-22] MEDS: PANTOPRAZOLE 40 MG VIAL IV (08:49)
[2021-03-22] MEDS: ONDANSETRON 4 MG/2 ML INJ IV (08:49)
--- NOTE | 2021-03-22 10:09 | CM.DPC ---
DCP Cont: Per Surgeon, pt's scope went well and no signs of active bleed and normal but took some biopsies to confirm no bacteria and need for abx after d/c. Pt continues to have uncontrolled pain in her head, like a severe migraine that is limiting her ability to ambulate and eat. SW met bedside with pt and explained role and she is very tearful and clearly in pain stating its like a stabbing knife or ax in my head that never goes away. Pt states she has been healthy until the past couple years she began to have migraines, has had about 4 in the past, but were managed by sleep and over the counter tylenol. Pt confirms that she does not have a PCP but aware she needs to establish with one. Pt does not feel safe discharging home with her pain uncontrolled and inability to complete ADL's independently or work. Pt confirms that sister is flying out to assist and Sig Other helping her dad at home. SW provided [employer] application and [employer] applications and information for likely future need of assist. Pt appreciative but mostly concerned about her head pain. SW discussed with RN a Hospitalist Consult towards a bridge for pt after d/c while establishing with PCP and potential need of Neurologist if pain cannot be managed. RN just placed Hospitalist consult order and discussed with Hospitalist towards better pain management for safe d/c. Plan: SW to follow closely for pain management and ability for pt to manage ADL's independently for safe d/c home with family and Sig Other. GISELLE Mendiola
--- NOTE | 2021-03-22 10:21 | DI.MRI.S_ITS ---
PROCEDURE: MR HEAD/BRAIN WO CON INDICATIONS: MIGRAINE/GARAY TECHNIQUE: Noncontrast axial T1 spin echo, axial T2 fast spin echo, sagittal and axial FLAIR, coronal T2 fast spin echo, axial gradient echo, axial diffusion and ADC through the brain. COMPARISON: None. FINDINGS: Image quality: Diagnostic, with note made of motion artifact. CSF Spaces: Basal cisterns are patent. No extra-axial fluid collections. Ventricles are normal in size and shape. Brain: No intracranial masses or hemorrhage. Bey/white matter interface is normal. Brainstem appears normal. Diffusion-weighted images demonstrate no acute ischemic insult. No chronic ischemic insults. Normal intravascular flow voids are present. Skull and face: Calvarium has normal marrow signal. Orbits appear normal. Sinuses: Mild mucosal thickening seen involving right maxillary sinus. Sinuses and mastoids are otherwise relatively clear. IMPRESSION: Unremarkable intracranial study, without an imaging explanation found for the patient's presenting history of headache. Dictated by: Glen Toussaint M.D. on 03/22/2021 at 10:02 Approved by: Glen Toussaint M.D. on 03/22/2021 at 10:04
--- NOTE | 2021-03-22 10:24 | P.CONS_ITS ---
History of Present Illness Consult details Chief complaint: Anemia Narrative: THIS IS A 40-YEAR-OLD FEMALE IN THE HOSPITAL BEING TREATED FOR GI BLEED SECONDARY TO BLEEDING GASTRIC ULCER. PATIENT STATUS POST EGD DAY 1. HEMOGLOBIN HAS SIGNIFICANTLY IMPROVED AND SHE IS NOT SHOWING SIGN OF RECURRENT BLEEDING AT THIS TIME. HOWEVER SHE REPORTED SIGNIFICANT MIGRAINE / INTRACTABLEHEADACHES. WHICH HAS BEEN ONGOING FOR LAST FEW WEEKS OR MONTHS. THIS IS THE REASON WHY SHE WAS TAKING IBUPROFEN TO HELP WITH THE MIGRAINE AND SUBSEQUENTLY DEVELOPED THE ULCER. WILL BEEN CONSULTED TO HELP WITH THE WORKUP AND MANAGEMENT OF THE MIGRAINE. HER LABS ARE FAIRLY STABLE. SHE STATE THAT SHE HAS A MIGRAINE WHICH COMES AND GOES. STABBING PAIN IS REPORTED. NO PROVOKING FACTORS REPORTED. NO PRIOR HISTORY OF HEAD INJURIES. Meds Home Medications and Allergies Home Medications Medication Instructions Recorded Confirmed Type ondansetron 4 mg disintegrating 4 mg PO Q6H PRN #14 tab 03/13/21 03/20/21 Rx tablet Allergies Allergy/AdvReac Type Severity Reaction Status Date / Time Penicillins Allergy Intermediate swelling Verified 03/21/21 14:05 of hands and feet Sulfa (Sulfonamide Allergy Unknown Verified 03/20/21 12:53 Antibiotics) Review of Systems Review of Systems Narrative: ALL SYSTEM REVIEWED. NEGATIVE UNLESS NOTED IN HPI Exam Vital Signs (past 8 hours): - 03/22/21 03:51 Temperature 99.2 F Pulse Rate 82 Respiratory Rate 18 Blood Pressure 140/88 Pulse Oximetry 98 Oxygen Delivery Method Room Air Oxygen Flow Rate 0 Narrative Exam Narrative: NO ACUTE DISTRESS. PATIENT IS ALERT ORIENTED X3. VITAL SIGNS STABLE HEAD ATRAUMATIC NORMOCEPHALIC NECK : SUPPLE WITHOUT ADENOPATHY NO CAROTID BRUITS EYE: EOMI, PERRLA, NORMAL CONJUNCTIVA; NO JAUNDICE CHEST: REGULAR RATE. NO RUBS. PMI IS NON DISPLACED. NO MURMURS; NORMAL S1- S2 PULMONARY: DECREASED BS OVER THE BASES. MILD BIBASILAR CRACKLES NOTED; NO INCREASED DULLNESS TO PERCUSSION ABDOMEN: SOFT. NONTENDER. NONDISTENDED. BOWEL SOUNDS ARE PRESENT IN ALL 4 QUADRANTS. NO MASS. EXTREMITIES: NO EDEMA.. NO CYANOSIS CLUBBING NOTED. NEURO: CRANIAL NERVES 2-12 GROSSLY INTACT. NO FOCAL NEUROLOGICAL DEFICIT NOTED. MSK: NORMAL RANGE OF MOTION FOR AGE. NO JOINT EFFUSION. SKIN: NORMAL FOR ETHNICITY; NO ECCHYMOSIS. NO LESION. GOOD TURGOR.; NO RASHES : NORMAL EXTERNAL GENITALIA. PSYCH : APPROPRIATE MOOD AND AFFECT. ALERT AWAKE ORIENTED X3 Objective Labs Result Diagrams: 03/22/21 06:41 03/21/21 06:34 Labs: Laboratory Results - last 24 hr 03/20/21 03/22/21 13:40 06:41 WBC 8.5 RBC 3.03 L Hgb 9.1 L Hct 26.4 L MCV 87.3 MCH 29.9 MCHC 34.3 RDW 15.7 H Plt Count 208 Neut % (Auto) 73.3 Lymph % (Auto) 16.6 L [place] % (Auto) 8.9 Eos % (Auto) 0.9 L Baso % (Auto) 0.3 Neut # (Auto) 6200 Lymph # (Auto) 1400 [place] # (Auto) 800 Eos # (Auto) 100 Baso # (Auto) 0 Crossmatch See Detail [facility] Medical History Healthy adult Social History household members: significant other Tobacco & Substance Use Smoking Status: Current every day smoker alcohol intake: current Assessment & Plan Assessment & Plan narrative: PROBLEM LIST ANEMIA. LIKELY ASSOCIATED WITH ACUTE GI BLEED BLEEDING GASTRIC ULCER. STATUS POST EGD INTRACTABLE HEADACHES/MIGRAINE. CAUSE IS UNCLEAR RECOMMENDATIONS WILL GET MRI OF THE BRAIN NEEDED CODEINE WITH ACETAMINOPHEN WILL BE ORDERED AVOID ALL NSAIDS WILL ALSO TRY 1 TIME DOSE OF DEXAMETHASONE, BENADRYL AND MAGNESIUM WHICH HAVE SHOWN EFFICACY IN RELIEVING MIGRAINE IN SOME PATIENTS KEEP WELL HYDRATED WILL NEED TO BE REFERRED TO NEUROLOGY OUTPATIENT INDICATED ADDITIONAL MANAGEMENT PER CLINICAL COURSE Time Spent With Patient Critical Care time: I spent a total of [] minutes of critical care time on this patient's care t abdi; this time is exclusive of procedural time.
[2021-03-22] MEDS: diphenhydrAMINE 50 MG/ML VIAL 25 MG IV (10:52)
[2021-03-22] MEDS: dexAMETHasone 20 MG in SODIUM CHLORIDE 0.9% 50 ML 208 ML IV (10:55)
[2021-03-22] MEDS: MAGNESIUM SULFATE 2 GM/50 ML PIGGYBACK IV (11:03)
[2021-03-22] MEDS: CODEINE/ACETAMINOPHEN 30/300 TABLET 1 TAB PO (11:25)
--- NOTE | 2021-03-22 11:31 | P.PN_ITS ---
Subjective Subjective Date Patient Seen: 03/22/21 Time Patient Seen: 11:31 Interval history: Chief complaint is headache. She feels that she is unable to discharge home at this time because she has such as severe headache and she cannot take NSAIDs for pain. Her hemoglobin this morning was 9. Exam Vital Signs (past 8 hours): - 03/22/21 03:51 Temperature 99.2 F Pulse Rate 82 Respiratory Rate 18 Blood Pressure 140/88 Pulse Oximetry 98 Oxygen Delivery Method Room Air Oxygen Flow Rate 0 Resp Effort & Inspection: normal respiratory effort GI Inspection: normal to inspection Objective Labs Result Diagrams: 03/22/21 06:41 03/21/21 06:34 Labs: Laboratory Results - last 24 hr 03/20/21 03/22/21 13:40 06:41 WBC 8.5 RBC 3.03 L Hgb 9.1 L Hct 26.4 L MCV 87.3 MCH 29.9 MCHC 34.3 RDW 15.7 H Plt Count 208 Neut % (Auto) 73.3 Lymph % (Auto) 16.6 L [place] % (Auto) 8.9 Eos % (Auto) 0.9 L Baso % (Auto) 0.3 Neut # (Auto) 6200 Lymph # (Auto) 1400 [place] # (Auto) 800 Eos # (Auto) 100 Baso # (Auto) 0 Crossmatch See Detail [facility] Medical History Healthy adult Social History household members: significant other Smoking Status: Current every day smoker alcohol intake: current Assessment & Plan Assessment and plan (1) Acute upper GI bleed: Status: Acute Plan Will enlist the assistance of the hospitalist service for her other medical issues. From a GI bleeding standpoint she is stable and able to be discharged today. Time Spent With Patient Critical Care time: I spent a total of [] minutes of critical care time on this patient's care today; this time is exclusive of procedural time. Quality VTE Deep Vein Thrombosis/Pulmonary Embolism Present on Admission: No
[2021-03-22 12:05] VITALS: BP 132/81; PULSE 96; RESP 18; TEMP 37.3; O2SAT 96
[2021-03-22] MEDS: FAMOTIDINE 20 MG TABLET 40 MG PO (13:15)
[2021-03-22] MEDS: SUCRALFATE 1 GM TABLET PO ×2 (17:19→20:30)
[2021-03-22 19:50] VITALS: BP 135/93; PULSE 92; RESP 14; TEMP 37.1; O2SAT 98
[2021-03-22] MEDS: SUMAtriptan 20 MG SPRAY NASAL (20:16)
[2021-03-22] MEDS: DEXAMETHASONE 10 MG/ML VIAL 6 MG IV (20:30)
[2021-03-22] MEDS: PANTOPRAZOLE DR 40 MG TABLET PO (20:32)
[2021-03-23 09:05] VITALS: BP 139/87; PULSE 70; RESP 16; TEMP 36.9; O2SAT 98
[2021-03-23] MEDS: FAMOTIDINE 20 MG TABLET 40 MG PO (10:38)
[2021-03-23] MEDS: SUCRALFATE 1 GM TABLET PO (10:39)
[2021-03-23] MEDS: PANTOPRAZOLE DR 40 MG TABLET PO (10:49)
--- NOTE | 2021-03-23 11:10 | PM.PN.1 ---
Subjective Subjective Date Patient Seen: 03/23/21 Interval history: PATIENT REPORTED THAT SHE FELT BETTER IN CURRENT MEDICATIONS FOR HER MIGRAINE SHE SLEPT VERY WELL NO BLACK TARRY STOOL. NO BLOOD REPORTED IN SPUTUM WOULD LIKE TO GO HOME Exam Vital Signs (past 8 hours): - 03/23/21 09:05 Temperature 98.5 F Pulse Rate 70 Respiratory Rate 16 Blood Pressure 139/87 Pulse Oximetry 98 Oxygen Delivery Method Room Air Oxygen Flow Rate 0 Narrative Exam Narrative: NO ACUTE DISTRESS.? PATIENT IS ALERT ORIENTED X3. VITAL SIGNS STABLE HEAD ATRAUMATIC NORMOCEPHALIC NECK : SUPPLE WITHOUT ADENOPATHY NO CAROTID BRUITS EYE:? EOMI, PERRLA, NORMAL CONJUNCTIVA; NO JAUNDICE CHEST:? REGULAR RATE.? ? NO RUBS.? PMI IS NON DISPLACED.? NO MURMURS; NORMAL S1-S2 PULMONARY:? DECREASED BS OVER THE BASES.? MILD BIBASILAR CRACKLES NOTED; NO INCREASED DULLNESS TO PERCUSSION ABDOMEN:? SOFT.? NONTENDER.? NONDISTENDED.? BOWEL SOUNDS ARE PRESENT IN ALL 4 QUADRANTS.? NO MASS. EXTREMITIES: NO EDEMA..? NO CYANOSIS CLUBBING NOTED. NEURO:? CRANIAL NERVES 2-12 GROSSLY INTACT. NO FOCAL NEUROLOGICAL DEFICIT NOTED. MSK:? NORMAL RANGE OF MOTION FOR AGE.? NO JOINT EFFUSION. SKIN:? NORMAL FOR ETHNICITY; NO ECCHYMOSIS.? NO LESION. ? GOOD? TURGOR.; NO RASHES :? NORMAL EXTERNAL GENITALIA. PSYCH :? APPROPRIATE MOOD AND AFFECT.? ALERT AWAKE ORIENTED X3 Objective Labs Result Diagrams: 03/22/21 06:41 03/21/21 06:34 [facility] Medical History Healthy adult Social History household members: significant other Smoking Status: Current every day smoker alcohol intake: current Assessment & Plan Assessment & Plan narrative: ?ANEMIA.? LIKELY ASSOCIATED WITH? ACUTE GI BLEED ?BLEEDING GASTRIC ULCER.? STATUS POST EGD ?INTRACTABLE? HEADACHES/MIGRAINE.? CAUSE IS UNCLEAR ?RECOMMENDATIONS 03/23 DISCHARGE ON IMITREX NEEDED FOR MIGRAINE CONTINUE PROTONIX, PEPCID, AND CARAFATE FOR THE NEXT 4-6 WEEKS TRAMADOL ALSO ADDED FOR INTRACTABLE PAIN. PATIENT WILL NEED TO FOLLOW UP WITH PRIMARY CARE PHYSICIAN FOR FURTHER MANAGEMENT IN REGARD TO HER MIGRAINE. SHE COULD BE REFERRED TO NEUROLOGY FOR FURTHER MANAGEMENT IF INDICATED WELL WE APPRECIATE THE OPPORTUNITY TO PARTICIPATE IN THIS PATIENT'S CARE SHE IS CLEARED FOR DISCHARGE ON OUR STANDPOINT 03/22 ?WILL GET MRI OF THE BRAIN ? NEEDED CODEINE WITH ACETAMINOPHEN WILL BE ORDERED ?AVOID ALL NSAIDS ?WILL ALSO TRY 1 TIME DOSE OF DEXAMETHASONE, BENADRYL AND MAGNESIUM WHICH HAVE SHOWN EFFICACY IN RELIEVING MIGRAINE IN SOME PATIENTS ?KEEP WELL HYDRATED ?WILL NEED TO BE? REFERRED TO NEUROLOGY OUTPATIENT INDICATED ?ADDITIONAL MANAGEMENT PER CLINICAL COURSE Time Spent With Patient Critical Care time: I spent a total of [] minutes of critical care time on this patient's care today; this time is exclusive of procedural time. Quality VTE Deep Vein Thrombosis/Pulmonary Embolism Present on Admission: No
--- NOTE | 2021-03-23 13:13 | PC.NURSE ---
Discharge: Feels ready to d/c to home today. Yesterday had to much of a headache, reported she even had problems walking because she had so much pain, made her feel weak. She is up and amb in room w/out problems. Headache is gone for now. Tolerates a sm amt of diet. Denies needs for meds at the moment. Reviewed d/c packet. Questions answered. Pt d/c to home without problems.
== END 2021-03-23 12:00 | disposition home or self-care (01) | DRG 241 ==
LOC: ED 14:03 → AC 14:33
PROVIDERS: Admitting Provider Surgery; Emergency Provider Emergency Medicine; Referring Provider Emergency Medicine; Visit Provider Surgery
PROC: 0DJ08ZZ Inspection of Upper Intestinal Tract, Via Natural or Artificial Opening Endoscopic (ICD-10-PCS; CPT 43235; principal; 2021-03-21 16:15)
DX: K25.4 Chronic or unspecified gastric ulcer with hemorrhage (principal); D62 Acute posthemorrhagic anemia; K29.81 Duodenitis with bleeding; G43.919 Migraine, unspecified, intractable, without status migrainosus; F17.200 Nicotine dependence, unspecified, uncomplicated; Z20.822 Contact with and (suspected) exposure to COVID-19
CPT/HCPCS: 36415; 36430; 43239; 70551; 71045; 80048; 80053; 81001; 81025; 83605; 83690; 84145; 85025; 85610; 85730; 86850; 86900; 86901; 87040; 87635; 96361; 96365; 96375; 99231; 99284; 99285; 99406; C9803; P9016; A9270; C9113; J0696; J1100; J1170; J1200; J2405; J2704; J2765; J3475